=== PATIENT | male | born 1995 | race American Indian/Alaskan Native ===

== ENCOUNTER 2018-09-17 15:22 | Emergency (ER) | payer OTHER ==
[2018-09-17 15:30] VITALS: BMI 19.2
[2018-09-17 15:39] VITALS: RESP 18; TEMP 98.8; O2SAT 97
[2018-09-17] MEDS ORDERED: cefTRIAXone (Rocephin) 250 mg Inj IM STA (16:10)
[2018-09-17 16:11] LABS: URINE BACTERIA RARE (<OCC); URINE BILIRUBIN NEGATIVE (NEGATIVE); URINE BLOOD NEGATIVE (NEGATIVE); URINE CLARITY Hazy (Clear); URINE COLOR Straw (YELLOW); URINE GLUCOSE (UA) NORMAL (Normal); URINE LEUKOCYTE ESTERASE 2+ Leu/uL (Negative); URINE PROTEIN NEGATIVE (NEGATIVE); URINE UROBILINOGEN NORMAL mg/dL (0.2-1.0)
--- NOTE | 2018-09-17 16:33 | C.PDOC ---
History Of Present Illness 23 year old male presents to the ED complaining of penile discharge for 4 days. Notes he had protected intercourse with a new partner 6 days ago. Associated symptoms include dysuria but denies any fever, chills, back pain, abdominal pain, or testicular pain. Denies known history of STDs in the past. Time Seen by Provider: 09/17/18 15:38 Chief Complaint (Nursing): Male Genitourinary History Per: Patient History/Exam Limitations: no limitations Onset/Duration Of Symptoms: Days (4) Current Symptoms Are (Timing): Still Present Associated Symptoms: Urinary Symptoms (dysuria, penile discharge). denies: Fever, Chills, Back Pain Past Medical History Reviewed: Historical Data, Nursing Documentation, Vital Signs Vital Signs: Last Vital Signs Temp 98.8 F 09/17/18 15:30 Pulse 92 H 09/17/18 15:30 Resp 18 09/17/18 15:30 BP 152/84 H 09/17/18 15:30 Pulse Ox 97 09/17/18 15:30 - Medical History PMH: No Chronic Diseases Other Surgeries: Hx of surgeries Family History: States: No Known Family Hx - Social History Hx Alcohol Use: Yes Hx Substance Use: No - Immunization History Hx Tetanus Toxoid Vaccination: No Hx Influenza Vaccination: No Hx Pneumococcal Vaccination: No Review Of Systems Constitutional: Negative for: Fever, Chills Gastrointestinal: Negative for: Abdominal Pain Genitourinary: Positive for: Dysuria, Penile Discharge. Negative for: Scrotal Pain Musculoskeletal: Negative for: Back Pain Physical Exam - Physical Exam Appears: Non-toxic, No Acute Distress Skin: Warm, Dry, No Rash Head: Normacephalic Eye(s): bilateral: Normal Inspection, EOMI Nose: Normal Oral Mucosa: Moist Neck: Normal ROM, Supple Chest: Symmetrical Cardiovascular: Rhythm Regular Respiratory: Normal Breath Sounds, No Accessory Muscle Use, Other (speaking full sentences) Gastrointestinal/Abdominal: Normal Exam, Soft, No Tenderness Back: No CVA Tenderness, No Vertebral Tenderness Extremity: Normal ROM Neurological/Psych: Oriented x3, Normal Speech Gait: Steady ED Course And Treatment O2 Sat by Pulse Oximetry: 97 (RA) Pulse Ox Interpretation: Normal Progress Note: Patient given Zithromax 1000mg PO and Rocephin 250mg IM. Urine culture collected and sent to the lab for analysis. Previous visits evaluated - patient was positive for gonorrhea in 05/17. Discussed with patient partner treatment and condoms. Disposition - Disposition Disposition: HOME/ ROUTINE Disposition Time: 16:30 Condition: STABLE Additional Instructions: Follow up with your primary medical doctor or clinic in 2-5 days for further evaluation. Take medications as prescribed. Return to the emergency department at any time if symptoms persist or worsen. 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 - Scribe Statement The provider has reviewed the documentation as recorded by the Scribe Nata Morin All medical record entries made by the Yesica were at my direction and personally dictated by me. I have reviewed the chart and agree that the record accurately reflects my personal performance of the history, physical exam, medical decision making, and the department course for this patient. I have also personally directed, reviewed, and agree with the discharge instructions and disposition.
[2018-09-17 16:49] VITALS: BP 142/79; PULSE 78
== END 2018-09-17 16:49 | disposition home or self-care (01) ==
LOC: C.ER 15:22
DX: N34.2 Other urethritis (principal)
CPT/HCPCS: 81001; 87086; 87491; 87591; 96372; 99284; J0696